=== PATIENT | male | born 1945 | race Caucasian/White ===

== ENCOUNTER 2023-05-25 07:45 | Outpatient (CLI) | payer MEDICARE, OTHER ==
[2023-05-25 12:32] LABS: BASOPHILS % (AUTO) 0.5 %; EOSINOPHILS # (AUTO) 0.1 10^3/uL (0.0-0.7); EOSINOPHILS % (AUTO) 1.8 %; HCT - HEMATOCRIT 50.6 % (42.0-52.0); HGB - HEMOGLOBIN 16.6 g/dL (14.0-18.0); LYMPHOCYTES % (AUTO) 26.4 %; MEAN CORPUSCULAR HEMOGLOBIN 29.6 pg (27.0-31.0); MEAN CORPUSCULAR HGB CONC 32.8 g/dL (32.0-36.0); MEAN CORPUSCULAR VOLUME 90.2 fL (80.0-94.0); MEAN PLATELET VOLUME 10.7 fL (7.4-11.4); MONOCYTES % (AUTO) 13.4 %; NEUTROPHILS # (AUTO) 4.5 10^3/uL (1.5-6.6); NEUTROPHILS % (AUTO) 57.5 %; PLT - PLATELET COUNT 218 10^3/uL (130-450); RED BLOOD COUNT 5.61 10^6/uL (4.70-6.10); RED CELL DISTRIBUTION WIDTH 14.8 % (12.0-15.0); WHITE BLOOD COUNT 7.7 x10^3/uL (4.8-10.8)
[2023-05-25 12:43] LABS: ESTIMATED AVERAGE GLUCOSE 128 mg/dL (70-100); HEMOGLOBIN A1c% 6.1 % (4.27-6.07)
[2023-05-25 12:45] LABS: ALBUMIN 4.3 g/dL (3.2-5.5); ALBUMIN/GLOBULIN RATIO 1.4 (1.0-2.2); ALKALINE PHOSPHATASE 55 IU/L (42-121); ALT ALANINE AMINOTRANSFERASE 21 IU/L (10-60); AST ASPARTATE AMINOTRANSFERASE 18 IU/L (10-42); BILIRUBIN,TOTAL 0.7 mg/dL (0.2-1.0); BUN - BLOOD UREA NITROGEN 23 mg/dL (6-20); CALCIUM 9.8 mg/dL (8.5-10.3); CARBON DIOXIDE - CO2 32 mmol/L (21-32); CHLORIDE 101 mmol/L (101-111); CHOLESTEROL 141 mg/dL; CREATININE 1.1 mg/dL (0.6-1.3); GFR - MDRD 65 (>89); GLUCOSE 108 mg/dL (74-104); HDL CHOLESTEROL 35 mg/dL; LDL CHOLESTEROL,CALCULATED 74 mg/dL; LDL/HDL RATIO 2.1 (<3.6); POTASSIUM 3.7 mmol/L (3.5-4.5); SODIUM 138 mmol/L (135-145); TOTAL PROTEIN 7.3 g/dL (6.4-8.9); TRIGLYCERIDES 160 mg/dL (48-352); VLDL CHOLESTEROL 32 mg/dL
[2023-05-25 12:55] LABS: THYROID STIMULATING HORMONE 1.98 uIU/mL (0.34-5.60)
== END 2023-05-25 07:46 | disposition home or self-care (01) ==
LOC: LAB.N 07:45
PROVIDERS: ATTEND Internal Medicine
DX: E78.5 Hyperlipidemia, unspecified (principal); R73.03 Prediabetes; Z86.39 Personal history of other endocrine, nutritional and metabolic disease; I10 Essential (primary) hypertension
CPT/HCPCS: 36415; 80053; 80061; 82043; 82570; 83036; 83721; 84443; 85025

== ENCOUNTER 2023-07-23 09:07 | Day surgery (SDC) | payer MEDICARE, OTHER ==
[~2023-07-23 09:07] MED LIST: BUPIVACAINE 0.25% PF 30 ML VIAL ONE; LIDOCAINE 1%-EPI 1:100000 20 ML MDV ONE
[2023-07-23] MEDS ORDERED: CLINDAMYCIN 900 MG/50 ML 900 MG/50 ML BAG IV ONE (09:16)
[2023-07-23] MEDS ORDERED: PROPOFOL 500 MG/50 ML 500 MG/50 ML VIAL ONE (09:18)
[2023-07-23] MEDS ORDERED: SUCCINYLCHOLINE 200 MG/10 ML VIAL ONE (09:18)
[2023-07-23] MEDS ORDERED: LACTATED RINGERS 1,000 ML IV ONE ×2 (09:39→11:19)
--- NOTE | 2023-07-23 09:47 | HISTORY & PHYSICAL EXAMINATION ---
Chief Complaint - Chief Complaint Chief Complaint: here for excsion large symptomatic posterior neck lipoma History of Present Illness - History Obtained From Records Reviewed: yes History obtained from: pt Exam Limitations: none - History of Present Illness HPI Comment/Other: growing and now symptomatic posterior neck lipoma History - Past Medical History Cardiovascular: reports: Hypertension, Atrial fibrillation Respiratory: reports: Sleep apnea, CPAP use Endocrine/Autoimmune: reports: HyPOthyroidism GI: reports: None : reports: None HEENT: reports: Chronic vision loss Psych: reports: None Musculoskeletal: reports: Osteoarthritis Derm: reports: None MRSA Hx?: No - Past Surgical History Cardiovascular: reports: Other Meds/Allgy - Home Medications Home Medications: Ambulatory Orders Medication Instructions Recorded Confirmed Acetaminophen [Tylenol Arthritis] 1 - 2 tab PO TID PRN 07/17/23 07/17/23 Levothyroxine Sodium 50 mcg PO DAILY 07/17/23 07/17/23 Lisinopril [Zestril] 20 mg PO DAILY 07/17/23 07/17/23 carvediloL [Coreg] 25 mg PO BID 07/17/23 07/17/23 hydroCHLOROthiazide [Hydrodiuril] 25 mg PO DAILY 07/17/23 07/17/23 terbinafine HCL [Terbinafine HCl] 250 mg PO DAILY 07/17/23 07/17/23 - Allergies Allergies/Adverse Reactions: Allergies Allergy/AdvReac Type Severity Reaction Status Date / Time Iodinated Contrast Media Allergy Anaphylaxis Verified 07/17/23 14:57 iodine Allergy Anaphylaxis Verified 07/17/23 14:57 Penicillins Allergy Unknown Verified 07/17/23 14:57 Review of Systems - Other Findings Other Findings: 10 pt ros as above otherwise unremarkable Exam - Vital Signs Vital Signs: Vital Signs x48h Temp Pulse Resp BP Pulse Ox O2 Flow Rate 07/23/23 09:22 36.1 C L 72 16 145/90 H 95 0 - Physical Exam General Appearance: positive: No acute distress, Alert Eyes Bilateral: positive: PERRL, EOMI ENT: positive: No signs of dehydration, Other (nearly 10 cm posterior neck lipoma) Neck: positive: No JVD, Trachea midline Respiratory: positive: No respiratory distress, Breath sounds nml Cardiovascular: positive: Regular rate & rhythm Abdomen: positive: No distention Neurologic/Psychiatric: positive: Oriented x3 Conclusion/Plan - Problem List (1) Lipoma of skin and subcutaneous tissue of neck Conclusion/Plan: plan excision. parq held and consent obtained
[2023-07-23] MEDS ORDERED: ROCURONIUM 50 MG/5 ML VIAL ONE (09:54)
[2023-07-23] MEDS ORDERED: fentaNYL 100 MCG/2 ML VIAL ONE (09:54)
[2023-07-23] MEDS ORDERED: BUPIVACAINE 0.25% PF 30 ML VIAL SUBQ ONE (10:15)
[2023-07-23] MEDS ORDERED: LIDOCAINE MPF 1%-EPI 1:200000 30 ML VIAL SUBQ ONE (10:15)
[2023-07-23] MEDS ORDERED: DEXAMETHASONE 4 MG/ML VIAL ONE (10:22)
[2023-07-23] MEDS ORDERED: ONDANSETRON 4 MG/2 ML VIAL ONE (10:22)
[2023-07-23] MEDS ORDERED: ePHEDrine 50 MG/ML VIAL IVP ONE (10:24)
[2023-07-23] MEDS ORDERED: NALOXONE 0.4 MG/ML VIAL IVP PRN (10:25)
[2023-07-23] MEDS ORDERED: ePHEDrine 50 MG/ML VIAL IVP PRN (10:25)
[2023-07-23] MEDS ORDERED: fentaNYL 100 MCG/2 ML VIAL IVP PRN (10:25)
[2023-07-23] MEDS ORDERED: HYDROmorphone 0.5 MG/0.5 ML SYRINGE IVP PRN ×2 (10:25→11:19)
[2023-07-23] MEDS ORDERED: ONDANSETRON 4 MG/2 ML VIAL IVP PRN ×2 (10:25→11:19)
[2023-07-23] MEDS ORDERED: ATROPINE ABBOJECT 1 MG/10 ML SYRINGE IVP PRN (10:25)
--- NOTE | 2023-07-23 10:25 | ANESTHESIA ---
Pre-Anesthesia VS, & Labs - Diagnosis p neck lipoma - Procedure p neck lipoma excision Vital Signs: Temp Pulse Resp BP Pulse Ox O2 Flow Rate 36.1 C L 72 16 145/90 H 95 0 07/23/23 09:22 07/23/23 09:22 07/23/23 09:22 07/23/23 09:22 07/23/23 09:22 07/23/23 09:22 Height: 5 ft 10 in Weight (kg): 88 kg Body Mass Index: 27.8 BMI Classification: Overweight - NPO >8 hours - Lab Results Lab results reviewed: Yes Home Medications and Allergies Home Medications: Ambulatory Orders Acetaminophen [Tylenol Arthritis] 1 - 2 tab PO TID PRN 07/17/23 Levothyroxine Sodium 50 mcg PO DAILY 07/17/23 Lisinopril [Zestril] 20 mg PO DAILY 07/17/23 carvediloL [Coreg] 25 mg PO BID 07/17/23 hydroCHLOROthiazide [Hydrodiuril] 25 mg PO DAILY 07/17/23 terbinafine HCL [Terbinafine HCl] 250 mg PO DAILY 07/17/23 Acetaminophen [Tylenol Arthritis] 1 - 2 tab PO TID PRN 07/17/23 Levothyroxine Sodium 50 mcg PO DAILY 07/17/23 Lisinopril [Zestril] 20 mg PO DAILY 07/17/23 carvediloL [Coreg] 25 mg PO BID 07/17/23 hydroCHLOROthiazide [Hydrodiuril] 25 mg PO DAILY 07/17/23 terbinafine HCL [Terbinafine HCl] 250 mg PO DAILY 07/17/23 Allergies/Adverse Reactions: Allergies Allergy/AdvReac Type Severity Reaction Status Date / Time Iodinated Contrast Media Allergy Anaphylaxis Verified 07/17/23 14:57 iodine Allergy Anaphylaxis Verified 07/17/23 14:57 Penicillins Allergy Unknown Verified 07/17/23 14:57 Anes History & Medical History - Anesthetic History Anesthesia Complications: reports: No previous complications Family history of Anesthesia Complications: Denies Family history of Malignant Hyperthermia: Denies - Medical History Cardiovascular: reports: Hypertension, Atrial fibrillation (hx, s/p cv) Pulmonary: reports: Sleep apnea, CPAP use Gastrointestinal: reports: None Urinary: reports: None Musculoskeletal: reports: Osteoarthritis Endocrine/Autoimmune: reports: HyPOthyroidism Skin: reports: None Smoking Status: Never smoker Psychosocial: reports: No issues indicated - Surgical History Cardiothoracic: reports: Other Exam General: Alert, Oriented x3, Cooperative Dental: WNL Mouth Openin Fingerbreadth Neck Mobility: Normal Mallampati classification: III Thyromental Distance: 4-6 cm Respiratory: Lungs clear Cardiovascular: Regular rate Plan Anesthesia Type: General Consent for Procedure(s) Verified and Reviewed: Yes Code Status: Attempt Resuscitation ASA classification: 2-Mild systemic disease Is this case an emergency?: No
[2023-07-23] MEDS ORDERED: SUGAMMADEX 200 MG/2 ML VIAL IVP ONE (10:34)
[2023-07-23] MEDS ORDERED: LIDOCAINE-PF 2% 10 ML AMP SUBQ ONE (10:34)
[2023-07-23] MEDS ORDERED: LACTATED RINGERS 1,000 ML IV SCH (11:00)
[2023-07-23] MEDS ORDERED: HYDROcod/ACETAM 5/325 MG TABLET PO PRN (11:19)
--- NOTE | 2023-07-23 11:35 | OPERATIVE REPORT ---
Operative Report - General Procedure Date: 07/23/23 Planned Procedure: excision posterior neck lipoma Pre-Op Diagnosis: posterior neck lipoma Procedure Performed: excision 6 cm x 7 cm posterior subcutaneous neck lipoma 7 cm intermediate repair Post Op Diagnosis: same - Procedure Note Primary Surgeon: neftali bonilla Anesthesia Technique: General ET tube, Local Pathology: sent to path Estimated Blood Loss (mL): 15 Drain/Tube Type: Paul drain Indications: growing and painful posterior neck lipoma Findings: as above Complications: none - Other Other Information/Narrative: The patient was prepped identified brought to the the operating room and placed in supine position. Sequential compression devices were placed. General endotracheal anesthesia was induced. He was carefully repositioned and padded right lateral decubitus. He was prepped and draped in a sterile fashion and given preoperative antibiotics. An elliptical nearly 7 cm incision was made horizontally directly over the palpable mass. Dissection proceeded with cutting current. The lipoma had a well-defined pseudocapsule. The lipoma was removed in its entirety with a overlying ellipse of skin and subcutaneous tissue with gentle retraction and cutting current cautery. Hemostasis was further achieved with cautery. A 15 round Paul drain was placed through a separate stab incision and secured with a 3-0 nylon suture. Deeper subcutaneous tissue was closed with interrupted 2-0 Vicryl suture. More superficial subcutaneous tissue was closed with interrupted 2-0 Vicryl suture. Buried interrupted subdermal 3-0 Vicryl sutures were then placed. Skin was closed with a running 4-0 Monocryl subcuticular suture. Skin glue was used here as a dressing. Tegaderm was placed over the drain site. He was repositioned supine was awakened and brought to recovery in good condition.
--- NOTE | 2023-07-23 12:05 | ANESTHESIA POST OP EVALUATION ---
Anesthesia Post Eval - Post Anesthesia Eval Vitals: Last Vital Signs Temp 36.1 C L 07/23/23 12:01 Pulse 79 07/23/23 12:01 Resp 14 07/23/23 12:01 BP 120/75 07/23/23 12:01 Pulse Ox 92 07/23/23 12:01 O2 Flow Rate 0 07/23/23 09:22 CV Function Including HR & BP: Stable Pain Control: Satisfactory Nausea & Vomiting: Negative Mental Status: Baseline Respiratory Status: Airway Patent Hydration Status: Satisfactory Anesthesia Complications: None
[2023-07-23 12:06] VITALS: BP 120/75; O2SAT 92
== END 2023-07-23 09:08 | disposition home or self-care (01) ==
LOC: SDS 09:07
PROVIDERS: ATTEND Surgery
PROC: 0WB60ZZ Excision of Neck, Open Approach (ICD-10-PCS; principal; 2023-07-23 10:15)
DX: D17.0 Benign lipomatous neoplasm of skin and subcutaneous tissue of head, face and neck (principal); I10 Essential (primary) hypertension; G47.30 Sleep apnea, unspecified; I48.91 Unspecified atrial fibrillation
CPT/HCPCS: 21552; J0330; J7120

== ENCOUNTER 2023-08-13 07:14 | Outpatient (CLI) | payer MEDICARE, OTHER ==
[2023-08-13 12:39] LABS: ALBUMIN 4.4 g/dL (3.2-5.5); BILIRUBIN,DIRECT 0.13 mg/dL (0.03-0.18); BILIRUBIN,TOTAL 0.6 mg/dL (0.2-1.0); TOTAL PROTEIN 7.4 g/dL (6.4-8.9)
== END 2023-08-13 07:15 | disposition home or self-care (01) ==
LOC: LAB.N 07:14
PROVIDERS: ATTEND Internal Medicine
DX: B35.1 Tinea unguium (principal)
CPT/HCPCS: 36415; 80076

== ENCOUNTER 2023-09-11 07:07 | Outpatient (CLI) | payer MEDICARE, OTHER ==
[2023-09-11 12:46] LABS: ALBUMIN 4.5 g/dL (3.2-5.5); BILIRUBIN,DIRECT 0.15 mg/dL (0.03-0.18); BILIRUBIN,TOTAL 0.6 mg/dL (0.2-1.0); TOTAL PROTEIN 7.3 g/dL (6.4-8.9)
== END 2023-09-11 07:08 | disposition home or self-care (01) ==
LOC: LAB.N 07:07
PROVIDERS: ATTEND Internal Medicine
DX: B35.1 Tinea unguium (principal)
CPT/HCPCS: 36415; 80076

== ENCOUNTER 2024-04-25 07:27 | Outpatient (CLI) | payer MEDICARE, BC ==
[2024-04-25 11:53] LABS: BASOPHILS % (AUTO) 0.5 %; EOSINOPHILS # (AUTO) 0.2 10^3/uL (0.0-0.7); EOSINOPHILS % (AUTO) 2.1 %; HCT - HEMATOCRIT 51.3 % (42.0-52.0); HGB - HEMOGLOBIN 16.5 g/dL (14.0-18.0); LYMPHOCYTES # (AUTO) 1.6 10^3/uL (1.5-3.5); LYMPHOCYTES % (AUTO) 20.8 %; MEAN CORPUSCULAR HEMOGLOBIN 29.2 pg (27.0-31.0); MEAN CORPUSCULAR HGB CONC 32.2 g/dL (32.0-36.0); MEAN CORPUSCULAR VOLUME 90.6 fL (80.0-94.0); MEAN PLATELET VOLUME 10.8 fL (7.4-11.4); MONOCYTES % (AUTO) 12.6 %; NEUTROPHILS # (AUTO) 4.9 10^3/uL (1.5-6.6); NEUTROPHILS % (AUTO) 63.7 %; PLT - PLATELET COUNT 206 10^3/uL (130-450); RED BLOOD COUNT 5.66 10^6/uL (4.70-6.10); RED CELL DISTRIBUTION WIDTH 14.3 % (12.0-15.0); WHITE BLOOD COUNT 7.6 x10^3/uL (4.8-10.8)
[2024-04-25 12:35] LABS: THYROID STIMULATING HORMONE 1.87 uIU/mL (0.34-5.60)
[2024-04-25 12:36] LABS: ESTIMATED AVERAGE GLUCOSE 120 mg/dL (70-100); HEMOGLOBIN A1c% 5.8 % (4.27-6.07)
[2024-04-25 12:40] LABS: ALBUMIN 4.5 g/dL (3.2-5.5); ALBUMIN/GLOBULIN RATIO 1.6 (1.0-2.2); ALKALINE PHOSPHATASE 57 IU/L (42-121); ALT ALANINE AMINOTRANSFERASE 18 IU/L (10-60); AST ASPARTATE AMINOTRANSFERASE 16 IU/L (10-42); BILIRUBIN,TOTAL 0.6 mg/dL (0.2-1.0); BUN - BLOOD UREA NITROGEN 24 mg/dL (6-20); CARBON DIOXIDE - CO2 30 mmol/L (21-32); CHLORIDE 97 mmol/L (101-111); CHOL/HDL RATIO 3.9 (<5.0); CHOLESTEROL 147 mg/dL; CREATININE 1.1 mg/dL (0.6-1.3); GFR - MDRD 65 (>89); GLUCOSE 109 mg/dL (74-104); HDL CHOLESTEROL 38 mg/dL; LDL CHOLESTEROL,CALCULATED 75 mg/dL; POTASSIUM 3.9 mmol/L (3.5-4.5); SODIUM 133 mmol/L (135-145); TOTAL PROTEIN 7.3 g/dL (6.4-8.9); TRIGLYCERIDES 172 mg/dL; VLDL CHOLESTEROL 34 mg/dL
== END 2024-04-25 07:28 | disposition home or self-care (01) ==
LOC: LAB.N 07:27
PROVIDERS: ATTEND Internal Medicine
DX: E78.5 Hyperlipidemia, unspecified (principal); R73.03 Prediabetes; Z86.39 Personal history of other endocrine, nutritional and metabolic disease; I10 Essential (primary) hypertension
CPT/HCPCS: 36415; 80053; 80061; 82043; 82570; 83036; 83721; 84443; 85025